=== PATIENT | male | born 1990 | race Caucasian/White ===

== ENCOUNTER 2021-09-06 14:44 | Emergency (ER) | payer OTHER ==
[~2021-09-06] VITALS: Ht 187.9 cm; Wt 97.0 kg
--- NOTE | 2021-09-06 15:14 | ED General ---
General Chief Complaint: Glucose Problems Stated Complaint: INSULIN OVERDOSE Source of Information: Patient Exam Limitations: No Limitations History of Present Illness Date Seen by Provider: Sep 06, 2021 Time Seen by Provider: 14:46 Initial Comments 31-year-old male with past medical history of type 1 diabetes coming in after he had a critical alarm on his insulin pump that he had accidentally given 80 units of insulin Humalog. This was around 12:30 PM today. 1 hour prior to that he bolused himself with 5 units for lunch. His insulin pump is typically giving just over 1 unit/h. He immediately ripped it out when he give this alarm. He chugged to large energy drinks. He then came here. His denying any symptoms of low blood sugar at this time. Allergies and Home Medications Allergies Coded Allergies: No Known Drug Allergies (Unverified , 09/06/21) Patient Home Medication List Home Medication List Reviewed: Yes Review of Systems Review of Systems Constitutional: No fever EENTM: No blurred vision Respiratory: no symptoms reported Cardiovascular: no symptoms reported Gastrointestinal: no symptoms reported Genitourinary: no symptoms reported Musculoskeletal: no symptoms reported Skin: no symptoms reported Psychiatric/Neurological: No Symptoms Reported Hematologic/Lymphatic: No Symptoms Reported Immunological/Allergic: no symptoms reported All Other Systems Reviewed Negative Unless Noted: Yes Past Puzgqxq-Ibzeak-Ulblrm Hx Patient Social History Tobacco Use?: No Past Medical History Surgeries: No Physical Exam Vital Signs Vital Signs - First Documented 09/06/21 14:48 Temp 36.5 Pulse 86 Resp 18 B/P (MAP) 154/75 (101) Pulse Ox 99 O2 Delivery Room Air Capillary Refill : Height, Weight, BMI Height: '" Weight: lbs. oz. kg; BMI Method: General Appearance: No Apparent Distress, WD/WN Eyes: Bilateral Eye Normal Inspection HEENT: PERRL/EOMI, Normal ENT Inspection, Pharynx Normal Neck: Full Range of Motion, Normal Inspection, Non Tender, Supple Respiratory: Chest Non Tender, Lungs Clear, Normal Breath Sounds, No Accessory Muscle Use, No Respiratory Distress Cardiovascular: Regular Rate, Rhythm, No Edema, Normal Peripheral Pulses Gastrointestinal: Normal Bowel Sounds, Non Tender, Soft; No Distended, No Guarding Back: Normal Inspection, No CVA Tenderness, No Vertebral Tenderness Extremity: Normal Capillary Refill, Normal Inspection, Normal Range of Motion, Non Tender, No Calf Tenderness, No Pedal Edema Neurologic/Psychiatric: Alert, No Motor/Sensory Deficits, Normal Mood/Affect Skin: Normal Color, Warm/Dry Lymphatic: No Adenopathy Progress/Results/Core Measures Suspected Sepsis SIRS Temperature: Pulse: Respiratory Rate: Blood Pressure / Mean: Results/Orders Lab Results Laboratory Tests Test 09/06/21 15:05 09/06/21 15:42 09/06/21 16:27 Range/Units Glucometer 359 H 320 H 300 H 70-110 MG/DL My Orders Orders - BAYRON FITZPATRICK MD Accucheck Stat Q15M (09/06/21 15:06) Vital Signs/I&O 09/06/21 14:48 Temp 36.5 Pulse 86 Resp 18 B/P (MAP) 154/75 (101) Pulse Ox 99 O2 Delivery Room Air Capillary Refill : Progress Note : Progress Note 31-year-old male with above history coming in due to insulin pump malfunction after it stated they gave him 80 units of insulin. ABCs were intact and vitals were stable on presentation. Glucose on arrival was around 350. Checked it every 15 minutes and it continued to be around the same level. Then spaced it out and continue to monitor him for a couple of hours. In total it has been roughly 4-1/2 hours since the reported injection with no hypoglycemic events. I believe it is unlikely that actually gave him the insulin given the half-life of Humalog is roughly 1 hour subcu. I believe he is stable for discharge with outpatient follow-up. He will take his blood sugar frequently when he gets home, and if he begins to drop too quickly he will call 911. Departure Impression Primary Impression: Accidental overdose of insulin Disposition: HOME, SELF-CARE Condition: Stable Departure-Patient Inst. Decision time for Depature: 16:29 Patient Instructions: Diabetes Type 1, Adult (DC) Add. Discharge Instructions: Please check your blood sugar frequently all night tonight. If your blood sugar continues to be high over the next 2 hours then I would go ahead and restart your insulin like you normally would. If your blood sugar starts lowering quicker than usual, eat plenty of food and sugary drinks. If it begins lowering very rapidly, call 911. Work/School Note: Work Release Form Date Seen in the Emergency Department: Sep 06, 2021 Return to Work: Sep 07, 2021 Restrictions: No Restrictions BAYRON FITZPATRICK MD Sep 06, 2021 15:14
[2021-09-06 16:48] VITALS: BP 117/68
== END 2021-09-06 16:48 | disposition home or self-care (01) ==
LOC: ER FS 14:46
DX: T85.694A Other mechanical complication of insulin pump, initial encounter (principal); T38.3X1A Poisoning by insulin and oral hypoglycemic [antidiabetic] drugs, accidental (unintentional), initial encounter; E10.9 Type 1 diabetes mellitus without complications; Z96.41 Presence of insulin pump (external) (internal)
CPT/HCPCS: 82947